=== PATIENT | female | born 1955 | race Caucasian/White ===

== ENCOUNTER 2024-04-15 21:22 | Inpatient (IN) | payer MEDICARE, BC, MEDICAID ==
[~2024-04-15] VITALS: Ht 165.1 cm; Wt 81.7 kg
[~2024-04-15 21:22] MED LIST: EPINEPhrine HCl 0.1 MG/ML 10ML SYR XX ONE; Midazolam HCl 1MG / ML 2ML Vial IV ONE
[2024-04-15] MEDS ORDERED: FentaNYL Citrate 50 MCG/ML 2 ML Injection IV ONE (21:50)
[2024-04-15 21:55] LABS: pH Blood Arterial 7.12 (7.35-7.45)
[2024-04-15] MEDS ORDERED: NS 1,000 ML BAG IR ONE (21:55)
[2024-04-15 21:56] LABS: PCO2 Arterial 56.3 mmHg (35-45); PO2 Arterial 496 mmHg (80-100)
[2024-04-15] MEDS ORDERED: Midazolam HCl 1MG / ML 2ML Vial ONE ×2 (21:58→22:05)
[2024-04-15 21:59] LABS: BASOPHILS ABSOLUTE AUTO 0.14 K/mm3 (0.00-0.23); BASOPHILS PERCENT AUTO 1 % (0-2); EOSINOPHILS ABSOLUTE AUTO 0.15 K/mm3 (0.00-0.68); EOSINOPHILS PERCENT AUTO 1 % (0-6); Hematocrit 45.5 % (37.0-53.0); IMMATURE GRAN ABSOLUTE AUTO 0.69 K/mm3 (0.00-0.10); IMMATURE GRAN PERCENT AUTO 5 % (0-1); LYMPHOCYTES ABSOLUTE AUTO 8.66 K/mm3 (0.84-5.20); LYMPHOCYTES PERCENT AUTO 60 % (21-46); MONOCYTES ABSOLUTE AUTO 0.72 K/mm3 (0.16-1.47); MONOCYTES PERCENT AUTO 5 % (4-13); Mean Corpuscular HGB 30.8 pg (26.0-34.0); Mean Corpuscular HGB Conc 30.8 g/dL (31.5-36.5); Mean Corpuscular Volume 100 fL (80-100); Mean Platelet Volume 10.4 fL (9.1-12.4); NEUTROPHILS ABSOLUTE AUTO 4.11 K/mm3 (1.96-9.15); NEUTROPHILS PERCENT AUTO 28 % (41-73); NRBC Auto 0.7 /100 WBC (0.0-0.2); Platelet Count 328 K/mm3 (150-400); RDW Coefficient Variation 13.5 % (11.7-14.2); RDW Standard Deviation 50.2 fL (35.1-46.3); Red Blood Cell Count 4.55 M/mm3 (4.30-5.90); White Blood Cell Count 14.47 K/mm3 (4.00-11.30)
[2024-04-15 22:12] LABS: Ethanol (Alcohol), Blood, Med <3 mg/dL; Magnesium, Blood 2.2 mg/dL (1.6-2.4)
[2024-04-15 22:13] LABS: Alanine Aminotransfer (ALT/SGP 75 U/L (12-78); Albumin, Blood 3.3 g/dL (3.4-5.0); Albumin/Globulin Ratio 0.9 (0.8-1.8); Alk Phos 114 U/L (50-136); Anion Gap 15 mmol/L (3-11); Aspartate Aminotrans (AST/SGOT 108 U/L (12-37); Bilirubin, Total 0.6 mg/dL (0.1-1.0); Blood Urea Nitrogen 11 mg/dL (8-24); Bun/Creatinine Ratio 11.2 (12.0-20.0); CO2, Blood 22 mmol/L (21-32); Chloride, Blood 109 mmol/L (98-108); Creatinine, Blood 0.99 mg/dL (0.60-1.20); Globulin, Blood 3.6 g/dL (2.2-4.0); Glomerular Filtration Rate 68 (60-); Glucose, Blood 219 mg/dL (70-99); Potassium, Blood 4.3 mmol/L (3.5-5.5); Sodium, Blood 142 mmol/L (136-145); Total Protein, Blood 6.9 g/dL (6.4-8.2)
[2024-04-15 22:28] LABS: Source, Urine Straight Cath
[2024-04-15] MEDS ORDERED: propofoL 20 ML IV ONE (22:28)
[2024-04-15 22:36] LABS: Appearance, Urine Cloudy (Clear); Bilirubin, Urine Neg (Neg); Blood, Urine 5+ (Neg); Color, Urine Yellow (P-Yellow); Glucose Qualitative, Urine 2+ (Neg); Ketones, Urine 1+ (Neg); Leukocyte Esterase, Urine 3+ (Neg); Nitrite, Urine Pos (Neg); Protein, Urine 4+ (Neg); Specific Gravity, Urine 1.025 (1.003-1.022); Urobilinogen, Urine 1+ (Normal)
[2024-04-15 22:42] LABS: Amorphous Mod (0-Heavy); Bacteria Many /hpf; Squamous Epithelial Cells Mod /hpf (Few)
[2024-04-15 22:43] LABS: Mucus Light (0-Heavy); White Blood Cells, Urine 50-100 /hpf (0-5)
[2024-04-15 22:45] LABS: U Amphetamine Screen DETECTED; U Barbituate Screen Not Detected; U Benzodiazapine Screen DETECTED; U Buprenorphine Screen Not Detected; U Cannabinoids Screen DETECTED; U Cocaine Screen Not Detected; U Methadone Screen Not Detected; U Methamphetamine Screen Not Detected; U Opiates Screen Not Detected; U Oxycodone Screen Not Detected; U Phencyclidine Screen Not Detected
[2024-04-15] MEDS ORDERED: Ipratropium Bromide INH 0.02% 0.5 mg/2.5ML Vial INH SCH (22:55)
[2024-04-15] MEDS ORDERED: Albuterol 2.5 MG/3 ML VIAL INH SCH (22:55)
[2024-04-15] MEDS ORDERED: Morphine Sulfate 10 MG/ML 1MLSYR INH PRN (23:40)
[2024-04-15] MEDS ORDERED: Morphine Sulfate 10 MG/ML 1MLSYR IV PRN (23:40)
[2024-04-15] MEDS ORDERED: Atropine Sulfate 1% Opth Soln 2ML BTL SL PRN (23:45)
[2024-04-15] MEDS ORDERED: Ondansetron HCl 2 MG / ML 2ML Vial IV PRN (23:45)
[2024-04-15] MEDS ORDERED: Scopolamine Hydrobromide Patch TOP PRN (23:45)
[2024-04-15] MEDS ORDERED: LORazepam 2 MG/ML 1ML Injection IV PRN (23:45)
[2024-04-16] MEDS ORDERED: NS 1,000 ML IV ONE ×2 (00:20→05:25)
[2024-04-16 02:30] LABS: Calcium, Ionized (POC) 1.21 mmol/L (1.10-1.46); Chloride (POC) 106 mmol/L (98-108); Creatinine (POC) 1.1 mg/dL (0.6-1.0); Glucose (ISTAT POC) 157 mg/dL (70-99); Hemoglobin (POC) 15.3 g/dL (12.0-16.0); Potassium (POC) 3.9 mmol/L (3.5-5.5); Sodium (POC) 143 mmol/L (135-148); Total CO2 (POC) 24 mmol/L (21-32)
--- NOTE | 2024-04-16 03:06 | NUR ---
0245 Pt arrived from ED via [facility] with RN in attendance. Transferred with full assist to bed in room PCU 5. NRB mask and NC in use to provide adequate O2 from ED. Using O2 purely for comfort at this time, pt able to answer when she is feeling SOB and pt becomes symptomatic with diaphoresis and increased RR. 0320 Call to from marine plumber to report status declining and choosing to not come in at this time. Will contnue to update as needed.
[2024-04-16 03:16] VITALS: BP 130/94
[2024-04-16] MEDS ORDERED: Morphine Sulfate 20 MG/1ML 1 ML Oral Syringe PO PRN (03:45)
--- NOTE | 2024-04-16 04:19 | NUR ---
air hunger: Patient with increased air hunger, RR in the 30-40's, patient able to make y/n answers. atropine given for secretions. patient on nrb at 15. repositioned.
--- NOTE | 2024-04-16 04:38 | NUR ---
REASSESSMENT OF PAIN: PATIENT WITH IMPROVED AIR HUNGER, PATIENT TITRATED TO 11L, NRB, NO LONGER GRIMACING.
--- NOTE | 2024-04-16 06:09 | NUR ---
Pt awake and able to answer simple questions, though speech is difficult for her. MD here at 0530 to assess pt and review care. IVFs added and will continue to medicate as needed to keep comfortable. updated earlier in shift of pt condition. Please see assessment for additional details. No further complaints or concerns at this time, will continue to monitor per Comfort Care standards.
[2024-04-16] MEDS ORDERED: AMIT50 PO (07:42)
[2024-04-16] MEDS ORDERED: CYMBALTA30 M2 PO (07:42)
[2024-04-16] MEDS ORDERED: ALBU90OI INH (07:42)
[2024-04-16] MEDS ORDERED: WIXELA 100-501 EAC1 INH (07:43)
[2024-04-16] MEDS ORDERED: REXULTI1 MG PO (07:43)
[2024-04-16] MEDS ORDERED: CARVEDILOL6.25 MG PO (07:43)
[2024-04-16] MEDS ORDERED: ANORO ELLIPTA1 EAC1 INH (07:44)
[2024-04-16] MEDS ORDERED: ALPRAZOLAM0.5 M1 PO (07:45)
[2024-04-16] MEDS ORDERED: EUTHYROX50 MC1 PO (07:45)
--- NOTE | 2024-04-16 08:30 | NUR ---
ASSUMED CARE PT OPENS EYES WHEN THIS RN ENTERS ROOM. RESPIRATIONS EVEN AND UNLABORED. PATIENT ABLE TO STATE HER NAME, THAT SHE IS IN THE HOSPITAL, AND HER 'S NAME. PT STATES PAIN IS TOLERABLE AT THIS TIME AND DENIES A NEED FOR INTERVENTION. PT REPOSITIONED. RINCON PATENT AND DRAINING. WILL CONTINUE TO MONITOR AND PROVIDE COMFORT MEASURES
--- NOTE | 2024-04-16 09:41 | NUR ---
UPDATE PT COMPLAINS OF NAUSEA AND FEELING ANXIOUS. PT MEDICATED PER EMAR
[2024-04-16 10:33] VITALS: BP 122/79
[2024-04-16 12:03] LABS: BASOPHILS ABSOLUTE AUTO 0.04 K/mm3 (0.00-0.23); BASOPHILS PERCENT AUTO 0 % (0-2); EOSINOPHILS PERCENT AUTO 0 % (0-6); Hematocrit 42.4 % (33.0-51.0); Hemoglobin 13.5 g/dL (11.5-16.0); IMMATURE GRAN ABSOLUTE AUTO 0.08 K/mm3 (0.00-0.10); IMMATURE GRAN PERCENT AUTO 0 % (0-1); LYMPHOCYTES ABSOLUTE AUTO 0.73 K/mm3 (0.84-5.20); LYMPHOCYTES PERCENT AUTO 4 % (21-46); MONOCYTES ABSOLUTE AUTO 1.06 K/mm3 (0.16-1.47); MONOCYTES PERCENT AUTO 5 % (4-13); Mean Corpuscular HGB 30.3 pg (26.0-34.0); Mean Corpuscular HGB Conc 31.8 g/dL (31.5-36.5); Mean Platelet Volume 9.7 fL (9.1-12.4); NEUTROPHILS ABSOLUTE AUTO 18.41 K/mm3 (1.96-9.15); NEUTROPHILS PERCENT AUTO 91 % (41-73); Platelet Count 285 K/mm3 (150-400); RDW Coefficient Variation 13.6 % (11.7-14.2); Red Blood Cell Count 4.45 M/mm3 (3.80-5.20); White Blood Cell Count 20.32 K/mm3 (4.00-11.30)
[2024-04-16 12:04] LABS: Mean Corpuscular Volume 95 fL (80-100)
[2024-04-16 12:34] LABS: Albumin, Blood 3.3 g/dL (3.4-5.0); Albumin/Globulin Ratio 0.9 (0.8-1.8); Bilirubin, Total 0.8 mg/dL (0.1-1.0); Bun/Creatinine Ratio 28.2 (12.0-20.0); Calcium, Blood 8.6 mg/dL (8.5-10.1); Creatinine, Blood 0.67 mg/dL (0.40-1.00); Globulin, Blood 3.6 g/dL (2.2-4.0); Potassium, Blood 4.4 mmol/L (3.5-5.5); Total Protein, Blood 6.9 g/dL (6.4-8.2)
[2024-04-16] MEDS ORDERED: Azithromycin 500 MG in NS 250 ML IV SCH (13:00)
[2024-04-16] MEDS ORDERED: Albuterol 2.5 MG/3 ML VIAL INH PRN (13:05)
[2024-04-16] MEDS ORDERED: ALPRAZolam 0.5 MG Tab PO PRN (13:10)
[2024-04-16] MEDS ORDERED: Ipratropium/Albuterol SulF 2.5-0.5MG/3 ML Amp INH SCH (13:10)
[2024-04-16] MEDS ORDERED: Piperacillin/Tazobactam Sod 3.375 GM in NS 100 ML IV ONE (13:15)
[2024-04-16] MEDS ORDERED: Mometasone/Formoterol MDI 100/5 mcg 13 GM INH SCH (13:35)
--- NOTE | 2024-04-16 15:56 | NUR ---
Met [facility] patients to review prognosis and care. Kept it very brief pt is very fatigued and traumatized. He is shocked that she is still alive. Reivew of the trauma she want through. Asked hisband haow the past few months ahve been. She has been steadily declining and having more shorness of breath and weakness. He relayed a long and complex medical history. States has become more frail. Pt able to answer some questions with difficulty.She denies heache or ringing in ears. States he mouth is sore. breathing feels rough. a little nausea. relays pt has been having more nasuea the past year with poor response to medcaitions. States she has pain in her back and joints. Note pt splinitng neck and shest with poor ventilation and chest wall movement. Review of pt with nursing kps score is 20%. Review of comfort care and brief discussion of hospice with . Pt may be to fragile to transfer. Advised hisband to get some rest and check on children. Will have chaplian give him support tomorrow.
--- NOTE | 2024-04-16 17:19 | NUR ---
SHIFT SUMMARY PT HAS LABORED BREATHING AT THIS TIME. PT MEDICATED PER EMAR FOR AIR HUNGER. PT HAD COMPLAINTS OF NAUSEA ON AND OFF THIS SHIFT AND MEDICATED NEEDED. PT MORE AWAKE AND CONVERSING WITH STAFF THIS EVENING. PALLIATIVE CARE IN TODAY TO TALK WITH FAMILY. WILL CONTINUE TO PROVIDE COMFORT MEASURES
[2024-04-16] MEDS ORDERED: Piperacillin/Tazobactam Sod 3.375 GM in NS 100 ML IV SCH (18:00)
[2024-04-16 19:39] VITALS: BP 123/96
[2024-04-16] MEDS ORDERED: Carvedilol 6.25 MG Tab PO SCH (21:00)
[2024-04-16] MEDS ORDERED: Amitriptyline HCl 50 MG Tab PO SCH (21:00)
[2024-04-16] MEDS ORDERED: Prochlorperazine Edisylate 10 mg Vial IV PRN (23:35)
[2024-04-17 02:45] VITALS: BP 146/66
[2024-04-17 04:08] LABS: BASOPHILS ABSOLUTE AUTO 0.04 K/mm3 (0.00-0.23); BASOPHILS PERCENT AUTO 0 % (0-2); EOSINOPHILS ABSOLUTE AUTO 0.08 K/mm3 (0.00-0.68); EOSINOPHILS PERCENT AUTO 0 % (0-6); Hematocrit 41.4 % (33.0-51.0); Hemoglobin 13.5 g/dL (11.5-16.0); IMMATURE GRAN ABSOLUTE AUTO 0.05 K/mm3 (0.00-0.10); IMMATURE GRAN PERCENT AUTO 0 % (0-1); LYMPHOCYTES PERCENT AUTO 6 % (21-46); MONOCYTES ABSOLUTE AUTO 1.08 K/mm3 (0.16-1.47); MONOCYTES PERCENT AUTO 6 % (4-13); Mean Corpuscular HGB 31.1 pg (26.0-34.0); Mean Corpuscular HGB Conc 32.6 g/dL (31.5-36.5); Mean Corpuscular Volume 95 fL (80-100); Mean Platelet Volume 10.3 fL (9.1-12.4); NEUTROPHILS ABSOLUTE AUTO 16.76 K/mm3 (1.96-9.15); NEUTROPHILS PERCENT AUTO 88 % (41-73); Platelet Count 250 K/mm3 (150-400); RDW Coefficient Variation 13.6 % (11.7-14.2); RDW Standard Deviation 48.4 fL (35.1-46.3); Red Blood Cell Count 4.34 M/mm3 (3.80-5.20); White Blood Cell Count 19.11 K/mm3 (4.00-11.30)
--- NOTE | 2024-04-17 04:24 | NUR ---
1915 Assumed care of pt, bedside report completed. 2100 and brother in to see pt. Shift plan of care reviewed with family, questions regarding answered. Family with significant questions regarding outcome and plan of care intermodal customer service. reports has interest in how to get pt to hospital closer to home. Family advised to gather questions on paper and request significant time with MD/Telesales Representative/Palliative Care Team to discuss. Family with good grasp of health literacy and appear to have realistic expections. Family advised Palliative Care will most likely be consulting regarding pt tomorrow. Medicated pt for pain at this time and family stayed until pt fell asleep. Pt medicated for agitation/anxiety x 3 this shift with PO Xanax at start of shift and Ativan IVP later for pt reporting emotional distress and calling out for family members. Pt has been unable to retain call light use at this time, will continue to reinforce/demonstrate as able. Pain well controlled with 20mg Roxinol SL and Ativan 2mg IVP with good results. Pt is markedly more alert and is able to move all extremeties though globally weak, Please see assessment for additional details. No further complaints or concerns at this time, will continue to monitor.
[2024-04-17 04:42] LABS: Albumin/Globulin Ratio 0.9 (0.8-1.8); Bilirubin, Total 1.2 mg/dL (0.1-1.0); Bun/Creatinine Ratio 30.7 (12.0-20.0); Calcium, Blood 8.9 mg/dL (8.5-10.1); Creatinine, Blood 0.62 mg/dL (0.40-1.00); Globulin, Blood 3.5 g/dL (2.2-4.0); Magnesium, Blood 2.1 mg/dL (1.6-2.4); Phosphorus, Blood 1.4 mg/dL (2.5-4.9); Potassium, Blood 3.7 mmol/L (3.5-5.5); Thyroid Stimulating Hormone 0.78 uIU/mL (0.360-4.800); Total Protein, Blood 6.5 g/dL (6.4-8.2)
[2024-04-17] MEDS ORDERED: Levothyroxine Sodium 0.05 MG Tab PO SCH (06:00)
[2024-04-17] MEDS ORDERED: Potassium Phosphate Dibasic 30 MM in Dextrose 5% 500 ML IV STA (07:55)
[2024-04-17] MEDS ORDERED: DULoxetine HCL 30 MG Cap DR PO SCH (09:00)
[2024-04-17] MEDS ORDERED: Misc. Tablet PO SCH (09:00)
[2024-04-17] MEDS ORDERED: Nicotine 14 MG PATCH TOP SCH (09:00)
[2024-04-17] MEDS ORDERED: NS 1,000 ML IV SCH (12:35)
--- NOTE | 2024-04-17 15:40 | NUR ---
Pt more painfull today and frail having more nausea. Review of alternate plans for trnsfer to home updated employment case manager. pt having more pain and fraility.
--- NOTE | 2024-04-17 18:25 | NUR ---
SHIFT SUMMARY/TRANSFER PATIENT COMFORT CARE STATUS. WAS ORIENTED TO SELF THIS AM BUT HAS BECOME MORE LETHARGIC THE SHIFT HAS GONE ON. PATIENT TITRATED TO 2L NC FOR COMFORT. ABX AND FLUIDS INFUSING PER ORDERS. TURNED Q2 FOR COMFORT. RINCON IN PLACE DRAINING DARK YELLOW URINE TO GRAVITY. FAMILY AND PALLIATIVE CARE IN AND OUT OF ROOM DURING THE DAY. CALL PLACED TO MEDICAL FLOOR NURSE TO GIVE REPORT. PATIENT TRANSFERRING TO [facility]. PATIENT WILL BE TRANSFERRED WITH ALL BELONGINGS AND CHART. CALL PLACED TO PAMELA WITH UPDATE.
--- NOTE | 2024-04-18 06:02 | NUR ---
SUMMARY: PT REMAINS ON COMFORT CARE. SHE'S WAKEFUL TO VOICE AND ABLE TO CONVEY SOME NEEDS BUT HAS BECOME MORE LETHARGIC T/O NOCTE. SHE'S ORIENTED TO SELF AND SURROUNDINGS BUT IS CONFUSED AT TIMES, CALLING OUT FOR GRANDMA AND ATTEMPTING TO GET OOB BY SELF. ALARM ON FOR SAFETY. RINCON IS PATENT/DRAINING AND TURN SCHEDULE WAS MAINTAINED. SHE APPEARS PALE AND DIAPHORETIC W/COOL COMPRESS PROVIDED PRN. IVF INFUSING PER NPO STATUS AND PO MEDS HELD D/T INABILITY TO SAFELY SWALLOW. SHE BECOMES RESTLESS AND ANXIOUS AT TIMES AND RECEIVED PRN ROXINOL, IV ATIVAN AND IV MORPHINE FOR TOLERABLE RELIEF OF MADRID, BACK PAIN AND ABDO DISCOMFORT. SHE ALSO REPORTED AN UNSETTLED STOMACH W/ZOFRAN PROVIDED FOR GOOD AFFECT. SHE'S ON 3L O2 VIA NC FOR COMFORT W/SHALLOW TACHY RESPS OBSERVED. ATROPINE GTTS PROVIDED, SCOPALAMINE PATCH WAS APPLIED AND SUCTIONING ATTENDED TO FOR INCREASED ORAL SECRETIONS. PLAN IS TO D/C ON HOSPICE CLOSER TO HOME AND HER IS MEETING W/CAN STERILIZER TODAY BEFORE RETURNING HOME TO [place], [place]. MONA AND REPORT TO DAY RN.
--- NOTE | 2024-04-18 15:19 | NUR ---
SHIFT SUMMARY: PATIENT IS CURRENTLY ON COMFORT CARE. SHE OPENS HER EYES WHEN BEING REPOSITIONED BUT THEN CLOSES HER EYES WITH SHALLOW TACHY RESP. SHE DID NOT VERBALIZE OR SPEAK TO THIS NURSE THIS SHIFT. RINCON IS DRAINING PER GRAVITY WITH NO KINKS IN TUBING. RINCON OUTPUT IS SCANT AMOUNT AND IS DARK YELLOW COLORED. IV FLUIDS AND TELE HAVE BEEN DISCONTINUED. SCOPALAMINE PATCH IS STILL INTACT WITH SUCTION AT BEDSIDE FOR ORAL SECRETIONS. SHE IS LAYING IN BED WITH CALL LIGHT IN REACH. THE PLAN IS TO DISCHARGE HOME ON HOSPICE CLOSER TO HOME AND HER .
--- NOTE | 2024-04-18 16:42 | NUR ---
JUST CALLED THIS NURSE FOR AN UPDATE ON THE PATIENT. THIS NURSE TOLD THE THAT THE PATIENT IS NOT OPENING UP HER EYES WITH REPOSITIONING AND DOES NOT SPEAK. SHE CONTINUES TO HAVE TACHY SHALLOW BREATHING WHICH SHE IS BEING MEDICATED PER EMAR TO AIDE IN AIR HUNGAR AND WITH SECREATIONS WELL THE SCOPOLAMINE PATCH THAT WAS PLACED BY [employer] LAST NIGHT. STATED "WELL I JUST SPOKE WITH DR. SMITH AND SHE IS ONLY BREATHING WITH ONE LUNG DUE TO HER PNEUMONIA AND SHE SHOULD BE TREATED FOR THAT". THIS NURSE EDUCATED THE PATIENT WHAT IT MEANS TO BE ON HOSPICE. THE VERBALIZED UNDERSTANDING OF EDUCATION AND STATED "I FEEL LIKE THAT THEY GOT HER ALIVE JUST FOR HER TO SLOWLY AGAIN". THIS NURSE VERBALIZED UNDERSTANDING OF FRUSTRATION BUT WOULD TRY TO KEEP HER COMFORTABLE POSSIBLE. VERBALLY STATED "THANK YOU SO MUCH AND PLEASE KEEP ME UPDATED".
[2024-04-18] MEDS ORDERED: Azithromycin 500 MG in NS 250 ML IV SCH (17:00)
--- NOTE | 2024-04-18 17:01 | NUR ---
STATED HE WANTED TO BE UPDATED ON THE PATIENT AND SINCE HE WILL BE IN [place] TAKING CARE OF GRANDKIDS TO CALL THE HOME PHONE NUMBER FIRST WHICH IS [phone] AND IF HE DOESN'T QUALITY COORDINATOR TO CALL THE CELL PHONE NUMBER.
--- NOTE | 2024-04-18 20:36 | NUR ---
I SPOKE TO PT'S , AND RELAYED THE MORTUARY [employer] [phone] AND HE RELAYED THAT [facility] [phone] WILL BE PICKING UP PT'S BELONGINGS TONIGHT OR TOMORROW. [employer] TO PUT TOGETHER BELONGINGS LIST - WHICH I WILL PLACE ON THE FINAL DISCHARGE. DONOR LINE FAXED INFORMATION REQUESTED TO [phone] (FAX) - AWAITING FINAL DONOR POSSIBILITY FOR EYES - PT DOESN'T QUALIFY FOR TISSUE.
[2024-04-19] MEDS ORDERED: Piperacillin/Tazobactam Sod 3.375 GM in NS 100 ML IV SCH (16:40)
== END 2024-04-18 19:26 ==
LOC: ER 21:22 → ERHOLD 21:23 → PCU 21:23 → EDBD 21:23 → ERHOLD 21:23 → PCU 04-16 02:42 → MEDS 04-17 15:08 → PCU 04-17 15:09 → MEDS 04-17 19:29
PROVIDERS: Emergency Medicine; Internal Medicine; ADMIT Internal Medicine
PROC: 5A1935Z Respiratory Ventilation, Less than 24 Consecutive Hours (ICD-10-PCS; principal; 2024-04-15)
PROC: 4A033R1 Measurement of Arterial Saturation, Peripheral, Percutaneous Approach (ICD-10-PCS; 2024-04-15)
PROC: 0BH17EZ Insertion of Endotracheal Airway into Trachea, Via Natural or Artificial Opening (ICD-10-PCS; 2024-04-15)
DX: I46.9 Cardiac arrest, cause unspecified (principal); G92.8 Other toxic encephalopathy; I21.A1 Myocardial infarction type 2; J96.01 Acute respiratory failure with hypoxia; J96.02 Acute respiratory failure with hypercapnia; J18.9 Pneumonia, unspecified organism; I24.9 Acute ischemic heart disease, unspecified; Z51.5 Encounter for palliative care; Z66 Do not resuscitate; N39.0 Urinary tract infection, site not specified; M62.82 Rhabdomyolysis; J44.0 Chronic obstructive pulmonary disease with (acute) lower respiratory infection; J93.83 Other pneumothorax; F19.90 Other psychoactive substance use, unspecified, uncomplicated; B96.89 Other specified bacterial agents as the cause of diseases classified elsewhere; E83.39 Other disorders of phosphorus metabolism; R74.01 Elevation of levels of liver transaminase levels; I11.0 Hypertensive heart disease with heart failure; E03.9 Hypothyroidism, unspecified; F32.A Depression, unspecified; I50.9 Heart failure, unspecified; F41.9 Anxiety disorder, unspecified; Z85.3 Personal history of malignant neoplasm of breast; Z90.13 Acquired absence of bilateral breasts and nipples; Z72.0 Tobacco use
CPT/HCPCS: 31500; 36415; 36600; 36680; 51702; 70450; 71045; 71260; 76377; 80047; 80053; 81001; 82550; 82803; 83605; 83735; 83880; 84100; 84145; 84443; 84484; 85014; 85025; 87040; 87070; 87077; 87086; 87185; 87186; 87205; 93005; 93010; 94002; 94640; 94644; 94664; 94760; 96361; 96361-59; 96365; 96367; 96375; 96375-59; 96376; 99291-25; 99292; A9270; G0378; J0456; J0780; J2060; J2250; J2270; J2405; J2543; J2704; J3010; J7030; J7050; J7060; Q9967